=== PATIENT | male | born 1960 | race Caucasian/White ===

== ENCOUNTER → 2017-02-07 | Outpatient (CLI) | payer OTHER | LOC: FIMAGING 10:23 | PROVIDERS: ATTEND Family Medicine Sports Medicine | DX: R91.1 Solitary pulmonary nodule (principal) ==

== ENCOUNTER 2018-06-02 | Emergency (ER) | payer OTHER | END 2018-06-02 13:24 | disposition home or self-care (01) ==

== ENCOUNTER 2019-01-02 13:05 | Day surgery (SDC) | payer OTHER ==
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
[2019-01-02] MEDS ORDERED: ceFAZolin 2 GM/DEXTROSE 100 ML IV ONE (13:13)
[2019-01-02] MEDS ORDERED: LR 1,000 ML IV SCH (13:13)
[2019-01-02] MEDS ORDERED: BACITRACIN ZINC 0.5 OZ OINTTUBE TP ONE (14:03)
[2019-01-02] MEDS ORDERED: ROPIVACAINE HCL 20 MG/10 ML INJ EP ONE ×2 (14:03→16:59)
[2019-01-02] MEDS ORDERED: MIDAZOLAM 2 MG/2 ML VIAL IVP ONE (14:28)
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
[2019-01-02] MEDS ORDERED: ROPIVACAINE HCL 150 MG/30 ML INJ ONE (14:40)
[2019-01-02] MEDS ORDERED: fentaNYL 100 MCG/2 ML INJ ONE ×2 (15:51→16:49)
[2019-01-02] MEDS ORDERED: PROPOFOL 200 MG/20 ML VIAL ONE (15:51)
[2019-01-02] MEDS ORDERED: ROCURONIUM 50 MG/5 ML VIAL ONE (15:52)
[2019-01-02] MEDS ORDERED: GLYCOPYRROLATE 0.2 MG/1 ML VIAL ONE (16:24)
[2019-01-02] MEDS ORDERED: DEXAMETHASONE 4 MG/ML VIAL ONE (16:27)
[2019-01-02] MEDS ORDERED: ONDANSETRON 4 MG/2 ML VIAL IVP PRN (16:59)
[2019-01-02] MEDS ORDERED: PROMETHAZINE HCL 25 MG/ML INJ IVP PRN (16:59)
[2019-01-02] MEDS ORDERED: fentaNYL 100 MCG/2 ML INJ IVP PRN (16:59)
[2019-01-02] MEDS ORDERED: NALOXONE HCL 0.4 MG/ML INJ IVP PRN (16:59)
[2019-01-02] MEDS ORDERED: HYDROmorphONE/DILAUDID 2 MG/ML INJ IVP PRN (16:59)
[2019-01-02] MEDS ORDERED: ONDANSETRON 4 MG/2 ML VIAL ONE (17:00)
[2019-01-02] MEDS ORDERED: SUGAMMADEX SODIUM 200 MG/2 ML VIAL IVP ONE (17:11)
[2019-01-02] MEDS ORDERED: HYDROCODONE/APAP 5/325 TAB PO PRN (17:31)
[2019-01-02] MEDS ORDERED: ACETAMINOPHEN 325 MG TAB PO PRN (17:31)
[2019-01-02] MEDS ORDERED: D5W 1/2 NS W/ 20 KCl/L 1,000 ML IV SCH (17:45)
[2019-01-02] MEDS: OXYCODONE/APAP 5/325 TAB PO PRN ×2 (17:57→18:09)
[2019-01-02] MEDS ORDERED: OXYCODONE/APAP 5/325 TAB ONE ×2 (17:57→18:08)
[2019-01-02] MEDS ORDERED: KETOROLAC 15 MG/1 ML SDV IVP SCH (18:00)
[2019-01-02 19:46] VITALS: BP 130/84
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
== END 2019-01-02 19:45 | disposition home or self-care (01) ==
LOC: FSGY 13:05
PROVIDERS: ATTEND Orthopaedic Surgery
PROC: 0PSK04Z Reposition Right Ulna with Internal Fixation Device, Open Approach (ICD-10-PCS; principal; 2019-01-02 14:45)
DX: S52.021A Displaced fracture of olecranon process without intraarticular extension of right ulna, initial encounter for closed fracture (principal); Y93.55 Activity, bike riding; V18.0XXA Pedal cycle driver injured in noncollision transport accident in nontraffic accident, initial encounter
CPT/HCPCS: C1713; J0690; J1100; J2250; J2405; J2704; J2795; J3010

== ENCOUNTER 2019-01-09 09:36 | Day surgery (SDC) | payer OTHER ==
[2019-01-09] MEDS ORDERED: LR 1,000 ML IV ONE (10:13)
[2019-01-09] MEDS ORDERED: BUPIVACAINE 0.5% 30 ML SDV ONE (10:21)
[2019-01-09] MEDS ORDERED: MIDAZOLAM 2 MG/2 ML VIAL IVP ONE (10:47)
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
[2019-01-09] MEDS ORDERED: ceFAZolin 2 GM/DEXTROSE 100 ML IV ONE (11:00)
--- NOTE | 2019-01-09 11:00 | PDHPUP ---
History & Physical Update H&P update statement: This history and physical update is based on an assessment of the patient which was completed after admission or registration (within 24 hours), but prior to the surgery/procedure. H&P update: H&P reviewed & patient examined, no change in patient's condition since H&P completed (No changes in H or P)
--- NOTE | 2019-01-09 11:07 | POSTOPPROG ---
Post Op Note Date of Operation: 01/09/19 Surgeon: Cecilio Leonard Packaging Sales: none Anesthesiologist: Dr. Fonseca Anesthesia: GET(General Endotracheal) Pre-op Diagnosis: Left scaphoid fracture Post-op Diagnosis: same Indication: fracture Procedure: Screw fixation of Left scaphoid fracture Inf/Abcess present in the surg proc area at time of surgery?: No Depth: Deep Incisional (Fascial) EBL: Minimal Total fluids administered: 600cc Complications: None
[2019-01-09] MEDS ORDERED: LIDOCAINE 2% 100 MG/5 ML SYR ONE (11:25)
[2019-01-09] MEDS ORDERED: PROPOFOL/EMULSION 500 MG/50 ML BOTTLE IV ONE (11:26)
[2019-01-09] MEDS ORDERED: PROPOFOL 200 MG/20 ML VIAL ONE (11:26)
[2019-01-09] MEDS ORDERED: fentaNYL 100 MCG/2 ML INJ ONE (11:26)
[2019-01-09] MEDS ORDERED: ONDANSETRON 4 MG/2 ML VIAL ONE (12:11)
[2019-01-09] MEDS ORDERED: ONDANSETRON 4 MG/2 ML VIAL IVP PRN (12:29)
[2019-01-09] MEDS ORDERED: HYDROCODONE/APAP 5/325 TAB PO PRN (12:29)
[2019-01-09] MEDS ORDERED: DEXAMETHASONE 4 MG/ML VIAL IVP PRN (12:29)
[2019-01-09] MEDS ORDERED: fentaNYL 100 MCG/2 ML INJ IVP PRN (12:29)
[2019-01-09] MEDS ORDERED: DIAZEPAM 5 MG/ML 1 ML SYR IVP PRN (12:29)
[2019-01-09] MEDS ORDERED: NALOXONE HCL 0.4 MG/ML INJ IVP PRN (12:29)
[2019-01-09] MEDS ORDERED: HYDROmorphONE/DILAUDID 2 MG/ML INJ IVP PRN (12:29)
[2019-01-09] MEDS ORDERED: LR 500 ML IV PRN (12:29)
[2019-01-09] MEDS ORDERED: MEPERIDINE 25 MG/0.5 ML AMP IVP PRN (12:29)
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
[2019-01-09 14:01] VITALS: BP 153/84
--- NOTE | 2019-01-09 14:04 | POSTANESTH ---
Post Anesthetic Evaluation Cardiovascular Status: Normal, Stable Respiratory Status: Normal, Stable Level of Consciousness/Mental Status: Can Participate in Eval, Alert and Oriented Pain Control: Adequate, Prn Tx Ordered Nausea/Vomiting Control: Adequate, Prn Tx Ordered Complications Possibly Related to Anesthesia: None Noted
== END 2019-01-09 14:10 | disposition home or self-care (01) ==
LOC: FSGY 09:36
PROVIDERS: ATTEND Specialist
PROC: 0PSN04Z Reposition Left Carpal with Internal Fixation Device, Open Approach (ICD-10-PCS; principal; 2019-01-09 11:15)
DX: S62.015A Nondisplaced fracture of distal pole of navicular [scaphoid] bone of left wrist, initial encounter for closed fracture (principal); Z87.442 Personal history of urinary calculi
CPT/HCPCS: C1713; J0690; J2001; J2250; J2405; J2704; J3010